=== PATIENT | female | born 1945 | race Two or more races ===

== ENCOUNTER 2024-08-03 12:53 | Emergency (ER) | payer OTHER ==
[~2024-08-03] VITALS: Ht 160 cm; Wt 49.9 kg
[2024-08-03] MEDS ORDERED: LOSARTAN POTASS50 MG PO (13:34)
[2024-08-03] MEDS ORDERED: ATORVASTATIN CA10 MG PO (13:37)
[2024-08-03] MEDS ORDERED: PEPCID AC20 MG (13:38)
[2024-08-03] MEDS ORDERED: PREVACID30 M1 PO (13:38)
[2024-08-03] MEDS ORDERED: DEXAMETHASONE SODIUM PHOSPHATE 4 MG/ML VIAL ONE (17:14)
[2024-08-03] MEDS ORDERED: GUAIFENESIN/DEXTROMETHORPHAN 100MG/10ML BLIST.PACK PO ONE (17:14)
[2024-08-03] MEDS ORDERED: ACETAMINOPHEN 500 MG GEL..CAP PO ONE (17:14)
[2024-08-03] MEDS ORDERED: DEXAMETHASONE SODIUM PHOSPHATE 4 MG/ML VIAL IM STA (18:24)
[2024-08-03] MEDS ORDERED: ACETAMINOPHEN 325 MG TABLET PO STA (18:24)
[2024-08-03] MEDS ORDERED: GUAIFENESIN/DEXTROMETHORPHAN 100MG/10ML BLIST.PACK PO SCH (18:30)
== END 2024-08-03 20:36 | disposition home or self-care (01) ==
LOC: ER 12:53
DX: R11.0 Nausea (principal); R06.02 Shortness of breath
CPT/HCPCS: 71045; 96372; 99283; J1100